=== PATIENT | male | born 1975 | race Caucasian/White ===

== ENCOUNTER 2016-08-16 23:11 | Emergency (ER) | payer OTHER | END 2016-08-17 08:15 | disposition other institution (70) | LOC: FER 23:11 | DX: S72.002A Fracture of unspecified part of neck of left femur, initial encounter for closed fracture (principal); Z88.5 Allergy status to narcotic agent; Z96.7 Presence of other bone and tendon implants | CPT/HCPCS: 73502; 73552; 73700; J1170; J3360 ==